=== PATIENT | female | born 1990 | race Caucasian/White ===

== ENCOUNTER → 2016-07-29 | Outpatient (CLI) | payer BC ==
[~2016-07-29] MED LIST: DROS1TAB21 PO
== END | disposition home or self-care (01) ==
LOC: C.PAPS 10:28
PROVIDERS: ATTEND Obstetrics & Gynecology
DX: N87.0 Mild cervical dysplasia (principal)

== ENCOUNTER → 2017-08-03 | Outpatient (CLI) | payer BC | END | disposition home or self-care (01) | LOC: C.PAPS 09:32 | PROVIDERS: ATTEND Obstetrics & Gynecology | DX: Z01.419 Encounter for gynecological examination (general) (routine) without abnormal findings (principal); N87.0 Mild cervical dysplasia ==

== ENCOUNTER 2023-10-05 05:37 | Inpatient (IN) ==
--- NOTE | 2023-09-15 15:42 | Anesthesiology Consultation ---
Date of Service September 15, 2023 Assessment & Plan (1) Encounter for pre-operative examination: - Infectious disease screening: Per assessment on 09/15/23: No known infectious disease contacts or current infectious disease symptoms. No noted recent Covid positive test result. - Congenital heart abnormality: Patient spoke with ANTONIO CASTANEDA 09/15/23 and indicated personal history of a "small hole in heart noted as an ." I spoke with antonio bey via phone 09/14- she states she was "cleared" as an indicating that no further follow-up/surgical intervention was warranted/recommended in her case. She indicates she did not make Ob aware. I do not see documentation in [facility] [place] regarding this hx therefore I contacted Ob 09/14 to update them- Zara at [facility] voiced understanding/will update provider. 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 History Surgery Operation Date: 10/05/23 07:30 Proposed Procedures p Section (Delivery of Baby Through Abdominal Incision) - Radha Tam MD, FACOG Height/Weight Height: 5 ft 2 in Weight: 81.647 kg Allergies Allergy/AdvReac Type Severity Reaction Status Date / Time No Known Allergies Allergy Verified 09/15/23 15:02 Medications Home Medications Medication Instructions Recorded Confirmed Last Taken 21-iron fu-folic acid 1 tab PO DAILY 02/19/23 09/15/23 Unknown [ Complete] omeprazole 20 mg capsule,delayed 20 mg PO DAILY 09/15/23 09/15/23 Unknown release Past Medical History Medical History Acid reflux Breech presentation Heart abnormality "small hole in heart noted as an " > Patient states she was "cleared" as an infant indicating that no further follow-up/surgical intervention was warranted in her case Past Family History Family History Uncle Myocardial infarction great uncle Father Hypertension Other No family history of adverse response to anesthesia Denies family history of Ovarian cancer Prostate cancer Breast cancer Colorectal cancer Past Surgical History Surgical History H/O colposcopy with cervical biopsy Social History Smoking Status: Never smoker Do You Dip or Chew Tobacco: No Hx Alcohol Use: No substance use type: does not use
--- NOTE | 2023-10-04 16:54 | History & Physical Report ---
Date of Service October 04, 2023 Assessment & Plan (1) 39 weeks gestation of : (2) Breech presentation: Plan admit on 10/05/23 for planned c/s. reviewed procedure, risks/benefits and consent signed. plan labs in am and preop kefzol. pt aware. History of Present Illness Chief Complaint: planned c.s breech Primary Care Provider: NO PCP 33yo at 39+wks with breech presentation of fetus for planned c/s. Has declined ecv. Position has not changed. Ready for c/s in am. No rom, vb. +FM. No ctx. PNC uncomplicated. PNL rhpos, ri, gbs neg OBH: g1 GYNH: nl paps no stds Allergies Allergy/AdvReac Type Severity Reaction Status Date / Time No Known Allergies Allergy Verified 10/04/23 15:18 Home Medications Medication Instructions Recorded Confirmed Type 21-iron fu-folic acid 1 tab PO DAILY 02/19/23 10/04/23 History [ Complete] omeprazole 20 mg capsule,delayed 20 mg PO DAILY 09/15/23 10/04/23 History release Patient History Medical History Acid reflux Breech presentation Heart abnormality "small hole in heart noted as an " > Patient states she was "cleared" as an infant indicating that no further follow-up/surgical intervention was warranted in her case Surgical History H/O colposcopy with cervical biopsy Family History Uncle Myocardial infarction great uncle Father Hypertension Other No family history of adverse response to anesthesia Denies family history of Ovarian cancer Prostate cancer Breast cancer Colorectal cancer Social History (Updated 02/19/23 @ 10:04 by Zara Lassiter) Smoking Status: Never smoker Second Hand Exposure: Yes (past exposure when working); Do You Dip or Chew Tobacco: No; Hx Alcohol Use: No Preferred Language: Hebrew 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 Required: No Beliefs That Will Affect Care: None marital status: marital status details: Mj Mcmillan(37) [phone] Current Living Situation: Spouse Current Living Situation Comment: lives with spouse, cat-spouse changing litter current occupational status: employed 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
[2023-10-05 06:18] LABS: Basophils # (auto) 0.06 K/uL (0.00-0.20); Basophils % (auto) 0.4 %; Eosinophils # (auto) 0.17 K/uL (0.00-0.50); Eosinophils % (auto) 1.3 %; Hematocrit (blood only) 33.6 % (37.0-47.0); Hemoglobin 10.9 g/dl (12.0-16.0); Immature Granulocytes # (auto) 0.21 K/uL (0.01-0.20); Immature Granulocytes % (auto) 1.6 %; Lymphocytes # (auto) 2.61 K/uL (1.20-3.40); Lymphocytes % (auto) 19.5 %; Mean Corpuscular Hemoglobin 26.8 pg (25.0-34.0); Mean Corpuscular Hgb Conc 32.4 g/dL (32.0-36.0); Mean Corpuscular Volume 82.8 fL (80.0-100.0); Mean Platelet Volume 10.9 fL (9.4-12.4); Monocytes # (auto) 0.97 K/uL (0.11-0.59); Monocytes % (auto) 7.2 %; Neutrophils # (auto) 9.38 K/uL (1.40-6.50); Platelet Count 291 K/uL (130-400); RDW Coefficient of Variation 14.1 % (11.5-14.5); RDW Standard Deviation 41.7 fL (36.4-46.3); Red Blood Count 4.06 M/uL (4.20-5.40)
[2023-10-05] MEDS: LACTATED RINGER'S 1,000 ML IV SCH (06:22)
[2023-10-05] MEDS: ONDANSETRON INJ 2 MG/ML 2 ML VIAL IV STA (07:00)
[2023-10-05] MEDS ORDERED: fentaNYL citrate PF 100 MCG/2 ML VIAL ONE (07:02)
[2023-10-05] MEDS ORDERED: MoRPHine SULFATE PF 1 MG/ML 10 ML AMP/VIAL ONE (07:06)
--- NOTE | 2023-10-05 07:27 | History & Physical Bridge Note ---
Date of Service October 05, 2023 History & Physical Bridge Note I have examined the patient, reviewed the History & Physical and in the interval since the performance of the History & Physical I have noted the following changes of clinical significance: no changes noted
[2023-10-05] MEDS: CITRIC ACID/SODIUM CITRATE 15 ML UDC PO SCH (07:44)
[2023-10-05] MEDS: ceFAZolin 2,000 MG in SYRINGE 0 ML IV SCH (07:47)
[2023-10-05] MEDS ORDERED: OXYTOCIN 10 UNITS/ML VIAL ONE ×2 (08:19→08:38)
[2023-10-05] MEDS ORDERED: PHENYLEPHRINE HCL 25 MG/250 ML NSS IV ONE (08:23)
[2023-10-05] MEDS ORDERED: PHENYLEPHRINE 100MCG/ML 10ML SYR IV ONE (08:23)
[2023-10-05] MEDS ORDERED: DEXAMETHASONE SOD INJ 4 MG/ML VIAL ONE (08:25)
[2023-10-05] MEDS ORDERED: MIDAZOLAM HCL 1 MG/ML 2ML VIAL ONE (08:32)
--- NOTE | 2023-10-05 08:44 | Operative Report ---
PG Post Operative Report Pre & Post Diagnosis Operation Date: 10/05/23 07:30 Pre-Op Diagnosis: 1. 39 Weeks Gestation 2. Breech Presentation Post-Op Diagnosis: Same I identified the patient and participated in the time-out.: Yes Procedure Operation Date: 10/05/23 07:30 <No data on this case meets the specified criteria> Primary Low Transverse Section Surgeon Radha Tam MD, FACOG Lace Cutter Imani Estimated Blood Loss 441 (QBL) Findings Consistent with Post-Op Diagnosis (viable male apgars 8,9, normal uterus, tubes and ovaries bilaterally) Fluids 1000cc Specimens cord blood Drains sheehan Anesthesia Type Spinal Complications none Disposition Accompanied Patient To Recovery: No Disposition: L&D Indications 33yo at 39wks with breech presentation of fetus for planned c/s. Description of Procedure The patient was taken to the operating room and identified. After adequate anesthesia was obtained, she was placed in the supine position with a leftward tilt on the operating table and prepped and draped in the usual sterile fashion. A sheehan catheter had already been placed. The knife was used to create a Pfannensteil skin incision that was carried down to the underlying layer of fascia. The fascia was nicked in the midline and this opening was extended laterally using Phelps scissors. Conchita clamps were placed on the superior and inferior aspect of the fascial incision tenting it upward and the underlying rectus muscles were dissected off the overlying fascia both sharply and bluntly using Phelps scissors. The rectus muscles were bluntly in the midline. The peritoneal cavity was bluntly entered into. This opening was stretched. The bladder blade was placed. The vesicouterine peritoneum was elevated and opened up into and the bladder flap was created digitally and bladder blade was replaced. The knife was used to create a hysterotomy and this opening was stretched. The operators hand was placed through the hysterotomy and the bladder blade was removed. The buttocks was elevated and with fundal pressure was delivered to the level of the scapulae, the arms were swept across the anterior midline and the head was flexed and delivered. The cord was clamped and cut and the infant's mouth and nares were bulb suction. The infant was handed off to the awaiting pediatricians. Cord blood was obtained. The placenta was manually expressed. The uterus was exteriorized and cleared of all clots and debris. Dilute IV Pitocin was begun. The uterine tone was improving. The hysterotomy was closed in a running interlocking fashion using 0 Vicryl followed by a second imbricating layer of 0 Vicryl. The hysterotomy was hemostatic. The pelvis was irrigated. The uterus was returned to the abdomen. The gutters were cleared of all clots and debris. The hysterotomy was reinspected and noted to be hemostatic. The fascia was then closed in running fashion using 0 Vicryl. The subcutaneous fat was copiously irrigated and reapproximated using 2-0 chromic. The skin was closed in a subcuticular fashion using 4-0 monocryl. At this point the procedure was terminated. The patient was transferred to the recovery room in stable condition. All sponge, lap and needle counts are correct x2. I attest to the content of the Intraoperative Record and any orders documented therein. Any exceptions are noted below. OB Procedure Charges 23188
[2023-10-05] MEDS ORDERED: PROMETHAZINE HCL 6.25 MG in SODIUM CHLORIDE 0.9% 50 ML IV PRN (08:58)
[2023-10-05] MEDS ORDERED: NALOXONE HCL 0.08 MG in SYRINGE 1.8 ML IV PRN (08:58)
[2023-10-05] MEDS ORDERED: LACTATED RINGER'S 500 ML IV PRN (08:58)
[2023-10-05] MEDS ORDERED: ePHEDrine sulfate 50 MG/ML AMP IV PRN (08:58)
[2023-10-05] MEDS ORDERED: NALOXONE HCL 0.4 MG/1 ML VIAL/CARP IV PRN (08:58)
[2023-10-05] MEDS ORDERED: NALOXONE HCL 1 MG in SODIUM CHLORIDE 0.9% 1,000 ML IV PRN (08:58)
[2023-10-05] MEDS ORDERED: MoRPHine SULFATE PF 1 MG/ML 10 ML AMP/VIAL INT SPINAL ONE (08:58)
[2023-10-05] MEDS ORDERED: NALBUPHINE HCL 5 MG in SYRINGE 0 ML IV PRN (08:58)
[2023-10-05] MEDS ORDERED: ONDANSETRON INJ 2 MG/ML 2 ML VIAL IV PRN (08:58)
[2023-10-05] MEDS ORDERED: diphenhydrAMINE 50 MG/ML VIAL IV PRN (08:58)
[2023-10-05] MEDS ORDERED: NO NARCOTICS OR SEDATIVES SCH (09:00)
[2023-10-05] MEDS ORDERED: DC INTRASPINAL MORPHINE SCH (09:00)
[2023-10-05] MEDS ORDERED: SODIUM CHLORIDE 0.9% 1,000 ML IV SCH (09:00)
[2023-10-05] MEDS ORDERED: LACTATED RINGER'S 1,000 ML IV SCH (10:11)
[2023-10-05] MEDS ORDERED: HYDROCORTISONE ACETATE 25 MG SUPP PR PRN (10:11)
[2023-10-05] MEDS ORDERED: BENZOCAINE 20% SPRY 85 APPLN/85 GM CAN EXT PRN (10:11)
[2023-10-05] MEDS ORDERED: SENNA 8.6 MG TAB PO PRN (10:11)
[2023-10-05] MEDS ORDERED: MAGNESIUM HYDROXIDE SUSP 30 ML UDC PO PRN (10:11)
[2023-10-05] MEDS: KETOROLAC 30 MG/ML VIAL IV PRN (10:47)
[2023-10-05] MEDS: LR IV SCH (10:48)
[2023-10-05] MEDS: OXYTOCIN IV SCH (10:48)
[2023-10-05] MEDS: PANTOprazole 40 MG TAB PO SCH (11:59)
[2023-10-05] MEDS: SIMETHICONE 80 MG CHEW PO SCH (13:02)
--- NOTE | 2023-10-05 13:36 | Anesthesiology Progress Note ---
Date of Service October 05, 2023 Anesthesia Post Procedure Vital Signs Vital Signs: Temp Pulse Pulse Resp BP BP Pulse Ox 10/05/23 12:05 18 97 10/05/23 11:00 16 95 10/05/23 11:00 10/05/23 11:00 36.5 C 79 16 96/61 L 95 10/05/23 10:55 84 103/70 10/05/23 10:54 84 94 10/05/23 10:50 84 20 103/70 10/05/23 10:50 78 96 10/05/23 10:45 81 97 10/05/23 10:40 80 97 10/05/23 10:35 86 98 10/05/23 10:30 90 95 10/05/23 10:25 83 97 10/05/23 10:23 80 103/55 L 10/05/23 10:20 83 20 97 10/05/23 10:20 85 97 10/05/23 10:15 79 97 10/05/23 10:10 91 H 98 10/05/23 10:05 79 97 10/05/23 10:00 81 97 10/05/23 09:55 87 98 10/05/23 09:52 82 109/69 10/05/23 09:50 83 20 97 10/05/23 09:50 84 97 10/05/23 09:45 86 98 10/05/23 09:43 83 87/50 L 10/05/23 09:41 83 154/124 H 10/05/23 09:40 83 20 87/50 L 10/05/23 09:40 89 97 10/05/23 09:35 85 97 10/05/23 09:30 89 20 97 10/05/23 09:30 89 106/61 97 10/05/23 09:25 89 97 10/05/23 09:21 88 105/59 L 10/05/23 09:20 89 20 97 10/05/23 09:20 88 96 10/05/23 09:15 96 H 97 10/05/23 09:10 88 20 105/59 L 10/05/23 09:10 93 H 96/51 L 97 10/05/23 09:05 92 H 97 10/05/23 09:00 36.4 C L 88 20 105/59 L 10/05/23 09:00 91 H 102/56 L 96 10/05/23 08:55 91 H 97 10/05/23 08:50 92 H 97 10/05/23 08:49 87 106/56 L 10/05/23 07:13 20 10/05/23 07:13 36.9 C 20 10/05/23 07:04 88 100/64 10/05/23 06:13 37.0 C 10/05/23 06:03 92 H 123/77 10/05/23 05:56 18 O2 Del Method 10/05/23 12:05 10/05/23 11:00 10/05/23 11:00 Room Air 10/05/23 11:00 Room Air 10/05/23 10:55 10/05/23 10:54 10/05/23 10:50 10/05/23 10:50 10/05/23 10:45 10/05/23 10:40 10/05/23 10:35 10/05/23 10:30 10/05/23 10:25 10/05/23 10:23 10/05/23 10:20 10/05/23 10:20 10/05/23 10:15 10/05/23 10:10 10/05/23 10:05 10/05/23 10:00 10/05/23 09:55 10/05/23 09:52 10/05/23 09:50 10/05/23 09:50 10/05/23 09:45 10/05/23 09:43 10/05/23 09:41 10/05/23 09:40 10/05/23 09:40 10/05/23 09:35 10/05/23 09:30 10/05/23 09:30 10/05/23 09:25 10/05/23 09:21 10/05/23 09:20 10/05/23 09:20 10/05/23 09:15 10/05/23 09:10 10/05/23 09:10 10/05/23 09:05 10/05/23 09:00 10/05/23 09:00 10/05/23 08:55 10/05/23 08:50 10/05/23 08:49 10/05/23 07:13 10/05/23 07:13 10/05/23 07:04 10/05/23 06:13 10/05/23 06:03 10/05/23 05:56 Pain Intensity Bilateral Abdomen: Pain Intensity: 3 Transfer of Care Handoff Completed per policy Notes Mental Status: alert / awake / arousable Patient Amnestic to Procedure: Yes Nausea / Vomiting: adequately controlled Pain: adequately controlled Airway Patency, RR, SpO2: stable & adequate BP & HR: stable & adequate Hydration State: stable & adequate Neuraxial Anesthesia: was administered and sensory block is resolving Anesthetic Complications: no major complications apparent
[2023-10-05] MEDS: HYDROmorphone INJ 0.5 MG/0.5 ML SYR IV PRN (13:48)
[2023-10-05] MEDS: DIPHTHER/TETAN/PERTUS Vaccine (Tdap, Adol/Adult) 0.5mL IM ONE (16:53)
[2023-10-05] MEDS: DOCUSATE SODIUM 100 MG CAP PO SCH (21:09)
[2023-10-06] MEDS ORDERED: PROMETHAZINE HCL 25 MG in SODIUM CHLORIDE 0.9% 50 ML IV PRN (02:58)
[2023-10-06] MEDS ORDERED: ZOLPIDEM TARTRATE 5 MG TAB PO PRN (02:58)
[2023-10-06] MEDS ORDERED: diphenhydrAMINE Capsule 25 MG CAP PO PRN (02:58)
[2023-10-06] MEDS ORDERED: diphenhydrAMINE 50 MG/ML VIAL IV PRN (02:58)
[2023-10-06] MEDS ORDERED: ONDANSETRON INJ 2 MG/ML 2 ML VIAL IV PRN (02:58)
[2023-10-06] MEDS: IBUPROFEN 600 MG TAB PO PRN (03:22)
[2023-10-06] MEDS: oxyCODONE/ACETAMINOPHEN 5mg/325mg TAB PO PRN (03:22)
[2023-10-06 06:30] LABS: Basophils # (auto) 0.06 K/uL (0.00-0.20); Basophils % (auto) 0.4 %; Eosinophils # (auto) 0.15 K/uL (0.00-0.50); Eosinophils % (auto) 0.9 %; Hematocrit (blood only) 30.2 % (37.0-47.0); Hemoglobin 9.9 g/dl (12.0-16.0); Immature Granulocytes # (auto) 0.17 K/uL (0.01-0.20); Lymphocytes # (auto) 3.27 K/uL (1.20-3.40); Lymphocytes % (auto) 19.2 %; Mean Corpuscular Hemoglobin 27.2 pg (25.0-34.0); Mean Corpuscular Hgb Conc 32.8 g/dL (32.0-36.0); Mean Platelet Volume 11.1 fL (9.4-12.4); Monocytes % (auto) 7.6 %; Neutrophils # (auto) 12.08 K/uL (1.40-6.50); Neutrophils % (auto) 70.9 %; Platelet Count 258 K/uL (130-400); RDW Coefficient of Variation 14.2 % (11.5-14.5); Red Blood Count 3.64 M/uL (4.20-5.40); White Blood Count 17.03 K/ul (4.8-10.8)
--- NOTE | 2023-10-06 07:20 | Obstetrical Progress Note ---
Date of Service <Hui Canales Aaron - Last Filed: 10/06/23 07:26> October 06, 2023 Assessment & Plan <Hui Canales Aaron - Last Filed: 10/06/23 07:26> (1) care following delivery: Overall feels well, just tired. Eating well, voiding well, ambulating well. Pain well controlled with ibuprofen/Percocet. Routine care; OOB, ambulation, diet progression as tolerated. Anticipate discharge 48-72 hrs after c section delivery, tomorrow or Wednesday. After discharge will have 6 week follow-up with Dr. Tam. <Radha Tam MD, FACOG - Last Filed: 10/06/23 08:07> (1) care following delivery: Subjective <Hui Canales Aaron - Last Filed: 10/06/23 07:26> Pt is a 33 y/o female who is POD#1 following delivery for breech at 40 weeks. Today, pt states she is feeling fine. She states she did not sleep very well last night because she did not find the bed to be very comfortable, so she feels very tired today. Pain has been mild so far and bleeding is mild but improving. She states her sheehan was removed at 3 am and has voided since. Has ambulated some since the delivery and tolerating oral intake without issue. She is passing gas. She is and states baby has been cluster feeding. Constitutional: no fever, no chills or no sweats Respiratory: no dyspnea Cardiovascular: no chest pain or no palpitations Breast: no breast pain Genitourinary (female): no dysuria Neurologic: no headache(s) no changes in vision, no headaches Physical Exam <Hui Canales DO Aaron - Last Filed: 10/06/23 07:26> General: Alert, oriented. No acute distress. Cardiac: Regular rate and rhythm, no murmurs, rubs, or gallops. Respiratory: Clear to auscultation bilaterally, no wheezes/rales/rhonchi. No increased work of breathing. Symmetrical chest rise. No respiratory distress. Abdomen: Soft, nontender, nondistended. Bowel sounds present. Uterus: Uterine fundus firm, palpable below the umbilicus. Surgical scar clean and healing well. Lower extremities: No lower extremity edema or swelling. No deep calf pain. Results & Data <Hui Walker DO - Last Filed: 10/06/23 07:26> Vital Signs (Past 12 Hours) Vital Signs Temp Pulse Resp BP Pulse Ox 10/06/23 03:35 36.7 C 75 18 101/67 10/06/23 03:10 18 99 10/06/23 02:30 18 99 10/06/23 01:26 18 99 10/06/23 00:35 18 99 10/05/23 23:20 18 99 10/05/23 23:20 36.7 C 73 18 95/60 L 10/05/23 22:31 18 99 10/05/23 21:33 18 99 10/05/23 20:30 18 99 Supervising Physician <Radha Tam MD, FACOG - Last Filed: 10/06/23 08:07> Co-Signing Physician Notes Resident Physician Supervision Note: I was present with Dr. Walker during the history and exam. I discussed the case with the resident and agree with the findings and plan as documented in the note. Any exceptions or clarifications are listed here: stable doing well,eating, voiding, ambulating. . Rhpos, RI. abd soft ff 2 down nt, incision c/d/i with bruising. ext nt calves. hgb noted. Pod #1 s/p c/s, routine care. Documented By: Radha Tam MD, FACOG Resident Activity Tracking <Hui Walker DO - Last Filed: 10/06/23 07:26> Resident Involvement: Resident Care Provided Care Provided: OB Delivery
[2023-10-06] MEDS: FERROUS SULFATE 325 MG TAB PO SCH (07:49)
[2023-10-06] MEDS: PRENATAL VITAMIN 1 TAB PO SCH (07:49)
[2023-10-07 06:43] LABS: Hematocrit (blood only) 29.1 % (37.0-47.0); Hemoglobin 9.4 g/dl (12.0-16.0)
--- NOTE | 2023-10-07 07:08 | Obstetrical Progress Note ---
Date of Service <Hui Canales DO Aaron - Last Filed: 10/07/23 07:10> October 07, 2023 Assessment & Plan <Hui Canales DO Aaron - Last Filed: 10/07/23 07:10> (1) care following delivery: Overall continuing to feel well. Eating well, voiding well, ambulating well. Pain well controlled with ibuprofen/Percocet. Routine care; OOB, ambulation, continue regular diet. Anticipate discharge 48-72 hrs after c section delivery, today or tomorrow. After discharge will have 6 week follow-up with Dr. Tam. <Rizwan Velarde MD, FACOG - Last Filed: 10/07/23 07:33> (1) care following delivery: Subjective <Hui Canales DO Aaron - Last Filed: 10/07/23 07:10> Pt is a 33 y/o female who is POD#2 following delivery for breech at 40 weeks. Today, pt states she got a little better sleep last night but just does not find the bed here very comfortable. She states she has been feeling fine otherwise, pain has been maybe a little worse than yesterday but still mild overall. Lochia is minimal. She has been ambulating, tolerating intake, and urinating without issue. She is and it is going okay. She states she would like to go home today if possible since she would be more comfortable at home. Constitutional: no fever, no chills or no sweats Respiratory: no dyspnea Cardiovascular: no chest pain or no palpitations Breast: no breast pain Genitourinary (female): no dysuria Neurologic: no headache(s) Physical Exam <Hui Walker DO - Last Filed: 10/07/23 07:10> General: Alert, oriented. No acute distress. Cardiac: Regular rate and rhythm, no murmurs, rubs, or gallops. Respiratory: Clear to auscultation bilaterally, no wheezes/rales/rhonchi. No increased work of breathing. Symmetrical chest rise. No respiratory distress. Abdomen: Soft, nontender, nondistended. Bowel sounds present. Uterus: Uterine fundus firm, palpable below the umbilicus. Surgical scar clean and healing well, with some bruising noted inferior to the incision. Lower extremities: No lower extremity edema or swelling. No deep calf pain. Results & Data <Hui Walker DO - Last Filed: 10/07/23 07:10> Vital Signs (Past 12 Hours) Vital Signs Temp Pulse Resp BP Pulse Ox O2 Del Method 10/07/23 00:10 36.7 C 71 18 116/76 99 Room Air 10/06/23 20:10 36.4 C L 82 18 109/70 98 Room Air Supervising Physician <Rizwan Velarde MD, FACOG - Last Filed: 10/07/23 07:33> Co-Signing Physician Notes Resident Physician Supervision Note: I was present with Dr. Winkler during the history and exam. I discussed the case with the resident and agree with the findings and plan as documented in the note. Any exceptions or clarifications are listed here: [None] Documented By: Rizwan Velarde MD, FACOG Resident Activity Tracking <Hui Walker DO - Last Filed: 10/07/23 07:10> Resident Involvement: Resident Care Provided Care Provided: OB Delivery
[2023-10-07] MEDS ORDERED: bisacodyL 10 MG SUPP PR PRN (08:51)
[2023-10-07 10:28] VITALS: RESP 16; TEMP 98.2; O2SAT 98
[2023-10-07 12:36] VITALS: BP 112/75; PULSE 85
== END 2023-10-07 13:10 | disposition home or self-care (01) | DRG 788 ==
LOC: 4S1 05:37 → EDSTATUS 07:30 → 4E2 11:12